=== PATIENT | female | born 1980 | race Caucasian/White ===

== ENCOUNTER 2020-01-22 12:06 | Emergency (ER) | payer OTHER, BC ==
[~2020-01-22] VITALS: Ht 162.6 cm; Wt 60.0 kg
[2020-01-22 12:11] VITALS: BP 115/60
== END 2020-01-22 13:35 | disposition home or self-care (01) ==
LOC: ER 12:10
DX: Z20.828 Contact with and (suspected) exposure to other viral communicable diseases (principal)
CPT/HCPCS: 99283; C9803; U0003

== ENCOUNTER 2022-10-10 20:59 | Emergency (ER) | payer BC, OTHER ==
[~2022-10-10] VITALS: Ht 162.6 cm; Wt 53.0 kg
[2022-10-10 21:04] VITALS: BP 149/88; PULSE 101; RESP 18; TEMP 98.2
== END 2022-10-11 00:11 | disposition home or self-care (01) ==
LOC: ER 20:59
DX: M79.661 Pain in right lower leg (principal)
CPT/HCPCS: 93971; 99284

== ENCOUNTER → 2023-09-26 | Outpatient (CLI) | payer OTHER | END | disposition home or self-care (01) | LOC: MAMMO 12:40 | PROVIDERS: ATTEND Radiology Diagnostic Radiology | DX: Z12.31 Encounter for screening mammogram for malignant neoplasm of breast (principal) | CPT/HCPCS: 77063; 77067 ==